=== PATIENT | female | born 1985 | race Caucasian/White ===

== ENCOUNTER 2020-04-09 06:21 | Emergency (ER) | payer MEDICAID ==
[~2020-04-09] VITALS: Ht 162.6 cm; Wt 60.0 kg
[~2020-04-09 06:21] MED LIST: NO HOME MEDS
--- NOTE | 2020-04-09 06:30 | NUR ---
Consent to treat provided by EMS from pt's facility.
--- NOTE | 2020-04-09 07:22 | NUR ---
Spoke with Jimena at [facility] regarding pt condition. Phone number [phone] if we need to contact her for further pt care.
[2020-04-09] MEDS ORDERED: acetaminophen 325mg tablet PO ONE ×2 (07:55→08:25)
[2020-04-09] MEDS ORDERED: ACET-1131 PO (08:21)
[2020-04-09 08:36] VITALS: BP 109/62
== END 2020-04-09 08:38 | disposition home or self-care (01) ==
LOC: ER 06:22
DX: S00.83XA Contusion of other part of head, initial encounter (principal); F43.20 Adjustment disorder, unspecified; F31.9 Bipolar disorder, unspecified; F20.9 Schizophrenia, unspecified; F15.90 Other stimulant use, unspecified, uncomplicated; Z72.89 Other problems related to lifestyle; Z79.899 Other long term (current) drug therapy; X58.XXXA Exposure to other specified factors, initial encounter; Y93.89 Activity, other specified; Y92.89 Other specified places as the place of occurrence of the external cause; Y99.8 Other external cause status
CPT/HCPCS: 99283

== ENCOUNTER 2020-04-17 14:09 | Emergency (ER) | payer MEDICAID ==
[~2020-04-17] VITALS: Ht 162.6 cm; Wt 63.6 kg
[~2020-04-17 14:09] MED LIST changes: +ACET-1131 PO
[2020-04-17 15:08] LABS: BASOPHILS % (AUTO) 0.5 % (0-1); EOSINOPHILS # (AUTO) 0.1 X10'3 (0-0.9); EOSINOPHILS % (AUTO) 1.4 % (0-6); HEMATOCRIT 42.8 % (35.0-45.0); HEMOGLOBIN 14.4 g/dl (12.0-16.0); LYMPHOCYTES # (AUTO) 2.4 X10'3 (1.1-4.8); LYMPHOCYTES % (AUTO) 33.9 % (21-51); MEAN CORPUSCULAR HEMOGLOBIN 30.3 PG (27.0-31.0); MEAN CORPUSCULAR HGB CONC 33.6 g/dL (33.0-36.5); MEAN PLATELET VOLUME 9.6 FL (7.4-10.4); MONOCYTES # (AUTO) 0.5 X10'3 (0-0.9); MONOCYTES % (AUTO) 7.5 % (2-12); NEUTROPHILS % (AUTO) 56.7 % (42-75); PLATELET COUNT 195 X10'3 (140-440); RED BLOOD COUNT 4.76 X10'6 (4.20-5.60); WHITE BLOOD COUNT 7.1 X10'3 (4.5-11.0)
--- NOTE | 2020-04-17 15:15 | NUR ---
Pt reports no need to void at this time. Pt is aware a urine specimen is needed.
[2020-04-17] MEDS ORDERED: CARI6CAP PO (15:19)
[2020-04-17] MEDS ORDERED: LORA-269 PO ×2 (15:19→15:26)
[2020-04-17] MEDS ORDERED: SENN8.6T19 PO (15:19)
[2020-04-17] MEDS ORDERED: POLY119P5 PO (15:19)
[2020-04-17] MEDS ORDERED: CLON-571 PO (15:19)
[2020-04-17] MEDS ORDERED: MIRT15TA PO (15:19)
[2020-04-17] MEDS ORDERED: MEDR150V IM (15:19)
[2020-04-17] MEDS ORDERED: BENZ1TAB7 PO (15:19)
[2020-04-17] MEDS ORDERED: PROP40TA72 PO (15:19)
[2020-04-17] MEDS ORDERED: DOCU100C40 PO (15:19)
[2020-04-17 15:24] LABS: ALANINE AMINOTRANSFERASE 94 U/L (12-78); ALBUMIN 3.5 G/DL (3.4-5.0); ALBUMIN/GLOBULIN RATIO 1.2 (1.1-1.5); ALKALINE PHOSPHATASE 65 IU/L (46-116); ANION GAP 8 (8-16); ASPARTATE AMINO TRANSFERASE 38 U/L (10-37); BILIRUBIN,TOTAL 0.3 MG/DL (0.1-1.0); BLOOD UREA NITROGEN 17 MG/DL (7-18); BUN/CREATININE RATIO 21.3 (6.6-38.0); CALCIUM 8.7 MG/DL (8.5-10.1); CHLORIDE 108 MMOL/L (99-107); GLUCOSE 85 MG/DL (70-104); POTASSIUM 4.3 MMOL/L (3.5-5.1); SODIUM 143 MMOL/L (135-145); TOTAL PROTEIN 6.5 G/DL (6.4-8.2); eGFR 82 ML/MIN
[2020-04-17] MEDS ORDERED: ACET325T53 PO (15:26)
[2020-04-17 15:32] LABS: ETHANOL < 0.010 GM/DL (0.0-0.010)
--- NOTE | 2020-04-17 16:17 | NUR ---
Telephone report to GREG Burns and patient is being moved to ED overflow bed 26. Pt remains calm and cooperative at this time.
--- NOTE | 2020-04-17 16:20 | NUR ---
Received to OF room 26. Pt calm, cooperative. States does not remember punching anything at her boarding longterm. Pt responding to internal stimuli.
[2020-04-17] MEDS ORDERED: acetaminophen 325mg tablet PO PRN (17:10)
[2020-04-17 17:42] LABS: URINE HCG NEGATIVE (NEG)
[2020-04-17 17:51] LABS: CLARITY,URINE CLEAR (Clear); COLOR,URINE YELLOW (Yellow); GLUCOSE, URINE NEGATIVE (Neg); KETONES,URINE NEGATIVE (Neg); LEUKOCYTE ESTERASE ,URINE NEGATIVE (Neg); NITRITES, URINE NEGATIVE (Neg); OCCULT BLOOD,URINE NEGATIVE (Neg); PROTEIN,URINE NEGATIVE (Neg); UA COLLECTION TYPE CLN CATCH MIDSTREAM; UROBILINOGEN,URINE 0.2 E.U/dL (0.2-1.0)
[2020-04-17 17:55] LABS: URINE AMPHETAMINE SCREEN NEGATIVE (Neg); URINE BARBITUATE SCREEN NEGATIVE (Neg); URINE BENZODIAZEPINES SCREEN NEGATIVE (Neg); URINE CANNABINOID SCREEN NEGATIVE (Neg); URINE COCAINE SCREEN NEGATIVE (Neg); URINE METHADONE SCREEN NEGATIVE (Neg); URINE OPIATE SCREEN NEGATIVE (Neg); URINE PHENCYCLIDINE SCREEN NEGATIVE (Neg)
--- NOTE | 2020-04-17 17:59 | NUR ---
PACKET FAXED TO [facility]
--- NOTE | 2020-04-17 18:45 | NUR ---
Patient sitting up in bed eating her dinner. Patient is oriented to person. Patient cooperative, responds to some type of internal stimuli. Patient exhibits audible hallucinations, she is talking to unknown person or persons, patient laughs for no reason. The patient is in direct view from the nursing station. Frequent rounding is being done for staff and patient safety.
--- NOTE | 2020-04-17 19:49 | NUR ---
Patient sleeping on her right side in bed.
[2020-04-17] MEDS: sennosides 8.6mg tablet PO SCH (20:39)
[2020-04-17] MEDS: propranolol 40mg tablet PO SCH (20:39)
[2020-04-17] MEDS: benztropine 1mg tablet PO SCH (20:40)
[2020-04-17] MEDS ORDERED: mirtazapine 15mg tablet PO SCH (21:00)
[2020-04-17] MEDS ORDERED: CARIPRAZINE 1.5 MG CAPSULE PO SCH (21:00)
--- NOTE | 2020-04-17 22:00 | NUR ---
Patient is sleeping quietly on her left side.
--- NOTE | 2020-04-17 23:10 | NUR ---
Patient accepted to [facility] in [place] on 04/18/20. The accepting provider will be BRUNO Lopez. 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
--- NOTE | 2020-04-17 23:28 | NUR ---
Patient is sleeping quietly on her left side, in view from the nursing station.
--- NOTE | 2020-04-18 01:38 | NUR ---
Patient awoke, repositioned self. Went back to sleep.
--- NOTE | 2020-04-18 02:40 | NUR ---
Pt. speaking rapidly and loudly. She appears to be anxious. made aware. N.O. received for ativan 1mg and benadryl 25mg.
[2020-04-18] MEDS ORDERED: diphenhydrAMINE 25mg capsule PO ONE (02:45)
[2020-04-18] MEDS ORDERED: LORazepam 1 MG tablet PO ONE (02:45)
--- NOTE | 2020-04-18 03:30 | NUR ---
Patient is sleeping quietly.
--- NOTE | 2020-04-18 04:49 | NUR ---
Patient has been sleeping quietly since PO Ativan and Benadryl. In view from nursing station.
[2020-04-18 06:10] VITALS: BP 107/62
[2020-04-18] MEDS ORDERED: docusate sod 100mg capsule PO SCH (08:00)
[2020-04-18] MEDS ORDERED: polyethylene glycol 3350 17gm powd pack PO SCH (08:00)
[2020-04-18] MEDS: propranolol 40mg tablet PO SCH (08:22)
[2020-04-18] MEDS: benztropine 1mg tablet PO SCH (08:22)
[2020-04-18] MEDS: sennosides 8.6mg tablet PO SCH (08:22)
--- NOTE | 2020-04-18 08:39 | NUR ---
in bed resting and eating breakfast took morning meds. pt keeps talking to self
--- NOTE | 2020-04-18 10:28 | NUR ---
in bed resting seen ambulating to bathroom with steady gate
[2020-04-18] MEDS ORDERED: clonazePAM 1mg tablet PO SCH (12:30)
[2020-06-17] MEDS ORDERED: medroxyPROGESTERone acetate 150mg/ml inj IM SCH (10:00)
== END 2020-04-18 11:14 ==
LOC: ER 14:09
DX: R45.851 Suicidal ideations (principal); F31.9 Bipolar disorder, unspecified; F20.9 Schizophrenia, unspecified; F15.90 Other stimulant use, unspecified, uncomplicated; Z72.89 Other problems related to lifestyle; Z79.899 Other long term (current) drug therapy
CPT/HCPCS: 36415; 80053; 80305; 80320; 81003; 81025; 84443; 85025; 99285; Q0163